=== PATIENT | female | born 1935 | race Caucasian/White ===

== ENCOUNTER 2018-02-04 08:02 | Emergency (ER) | payer OTHER ==
--- NOTE | 2018-02-04 08:10 | EDPHY ---
H & P Time Seen by Provider: 02/04/18 08:10 HPI/ROS: CHIEF COMPLAINT: Epistaxis HISTORY OF PRESENT ILLNESS: The patient presents to the ED with acute anterior epistaxis that began earlier today from her left naris. The patient takes no anti-platelet or anticoagulant medications. She is on losartan for hypertension. She has no prior history of nose bleed. She denies history of trauma. The patient has no complaints of lightheadedness. She denies any additional acute medical complaints. REVIEW OF SYSTEMS: A comprehensive 10 point review of systems is otherwise negative aside from elements mentioned in the history of present illness. Source: Patient Exam Limitations: No limitations - Medical/Surgical History Other PMH: Past medical history: Hypertension - Family History Significant Family History: No pertinent family hx - Social History Smoking Status: Never smoked - Physical Exam Exam: General Appearance: Alert, no distress Eyes: Pupils equal and round no pallor or injection ENT, Mouth: Bleeding from the left anterior nasal septum Respiratory: There are no retractions, lungs are clear to auscultation Cardiovascular: Regular rate and rhythm Gastrointestinal: Abdomen is soft and nontender, no masses, bowel sounds normal Neurological: 5/5 strength all 4 extremities Skin: Warm and dry, no rashes Musculoskeletal: Neck is supple nontender Extremities: symmetrical, full range of motion Constitutional: Initial Vital Signs Heart Rate 65 02/04/18 08:26 Respiratory Rate 18 02/04/18 08:26 Blood Pressure 188/102 H 02/04/18 08:26 O2 Sat (%) 92 02/04/18 08:26 O2 Delivery Mode Room Air Medical Decision Making ED Course/Re-evaluation: The patient presents to the ED with acute anterior left epistaxis. She was treated with vaso constriction silver nitrate cautery. The patient was observed in the ED without evidence of rebleeding. She is ambulatory with stable vital signs. She will be discharged home with customary aftercare instructions and return precautions. Departure - Departure Disposition: Home, Routine, Self-Care Clinical Impression: Acute anterior epistaxis Condition: Good Instructions: Nosebleed (ED) Additional Instructions: 1. In the event of a recurrent nosebleed blow all clots from nose and apply clamp to nose for 10 min. 2. Return to the ED for uncontrolled bleeding. 3. Follow up with the Ear Nose Throat physician you have been referred to for any ongoing mild bleeding. Referrals: Harish Jackson MD [Medical Doctor] - As per Instructions
[2018-02-04] MEDS ORDERED: COCAINE HCL 4% 4 ML BTL TP ONE (08:14)
[2018-02-04 08:28] VITALS: BP 188/102
[2018-02-04] MEDS ORDERED: SILVER NITRATE APPLICATOR 1 APPL TP ONE (08:29)
== END 2018-02-04 09:24 | disposition home or self-care (01) ==
LOC: EDUNIT#
PROC: 095KXZZ Destruction of Nasal Mucosa and Soft Tissue, External Approach (ICD-10-PCS; principal; 2018-02-04)
DX: R04.0 Epistaxis (principal); I10 Essential (primary) hypertension